=== PATIENT | male | born 1935 | race Caucasian/White ===

== ENCOUNTER → 2016-12-03 | Outpatient (CLI) | payer OTHER, BC ==
[~2016-12-03] VITALS: Ht 154.9 cm; Wt 74.8 kg
[~2016-12-03] MED LIST: ATORVASTATIN CA40 MG PO; CYMBALTA60 MG PO; DITROPAN XL10 M1 PO; FLOMAX0.4 MG PO; HYDROCODONE-AP1 EAC6 PO; LOPRESSOR25 PO; MS CONTIN15 MG PO; NABUMETONE 750750 M1 PO; NUCYNTA50 MG PO; PROTONIX40 M1 PO; TOPAMAX 25 MG T25 M1 PO; VITAMIN D3400 UNIT PO; VITAMINC500 PO
--- NOTE | ~2016-12-03 | HPC ---
[facility] [address] [address] PAIN MANAGEMENT CONSULTATION Name: JUANITASANJU Room #: REG Chely Roberto.#: [id number] Admission: 12/03/16 Attend Phys: Dawson Hess DO Discharge: Date of : 33 Report #: [id number] THIS REPORT FOR: //name// CC: Mahad Hess HISTORY OF PRESENT ILLNESS: The patient is an 81-year-old gentleman seen in consultation at request of Dr. Ramirez for assistance with management of pain, low back, left buttock and leg. He had had a spinal cord stimulator implanted about 5 or 6 years ago at [facility]. He states he uses it daily. He states he feels tingling sensation in his back and legs. He states it "takes my mind off my pain." He has been taking hydrocodone 5/325 two tablets in the morning for some time, Cymbalta 60 mg daily, Relafen 750 b.i.d. He notes he has subjective weakness in his back and legs. Notes no paresthesia, saddle anesthesia or bowel or bladder continence changes. Despite 10 mg of hydrocodone once a day, he still rates his pain at 7-9 on a 0-10 visual analog scale. He describes continuous, steady, burning, aching, tender pain exacerbated with standing and walking. REVIEW OF SYSTEMS: Complete review of systems was attached to chart, was gone over with the patient. He is . He does not smoke or drink alcohol to excess. History of dyslipidemia for which he takes Lipitor. Benign prostatic hypertrophy for which he takes Flomax and Ditropan. Metoprolol for hypertension. He does have a renal mass that is being followed, it has not been biopsied. By reports, his renal function is within normal limits. He takes Protonix for gastroesophageal reflux, Elavil for insomnia. He does have some short term memory noted in the notes from Dr. Ramirez. 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 He has been diagnosed with tremor and Parkinson's. He has failed multiple Parkinson's drugs, currently he is taking Topamax with some efficacy. He has had at least 4 back surgeries, last one being 10-12 years ago, plus the aforementioned spinal cord stimulator implanted 5 years ago. Apparently, that physician stopped seeing patients per the patient, he cannot remember the physician's name. 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 Pain impact score is quite high, averaging about 7.8 for all indices queried. PHYSICAL EXAMINATION: Reveals 5 feet 7 inches, 165-pound gentleman, BMI is 31.2 kilograms per meter squared. He is well groomed, appears alert and oriented, but does have some obvious memory deficits. Blood pressure is 143/74, pulse 61, respirations are 14. Cranial nerves 2-12 are generally intact. He does have [facility] [address] [place] [address] PAIN MANAGEMENT CONSULTATION Name: SANJU GRANT Room #: REG CLChely Mayberry#: [id number] Admission: 12/03/16 Attend Phys: Dawson Hess DO Discharge: Date of : 33 Report #: [id number] somewhat of a flat facies, perhaps secondary to his Parkinson's. Pupils equal, reactive to light and accommodation. Extraocular muscles are intact. Thyroid is enlarged, though I detect no specific nodules. Upper extremity strength is generally symmetric. Heart is regular and rhythmical without murmur. Lungs clear to auscultation. Rises from chair using armrests, has an ataxic gait. Lumbar flexion is limited to 70 degrees. Left dorsiflexion strength is diminished about 3/5, all other motor test about 4/5. Patellar reflexes absent on the right, 1-2/4 on the left. Straight leg raise is negative. Amairani test is negative. DIAGNOSTIC STUDIES: There are no recent diagnostic studies available for evaluation at this time. ASSESSMENT: Symptomatic lumbar radiculopathy status post decompressive laminectomy, component of lumbar spondylosis, component of sacroiliac joint dysfunction, Parkinson's, hypertension, dyslipidemia, benign prostatic hypertrophy and ostensibly benign renal mass being followed. RECOMMENDATIONS: Discussion with the patient today about therapeutic options. He states that with the hydrocodone he still is not as functional as he would like to be. After a long discussion, we have elected to start Nucynta 50 mg one in the morning and one 6 later roughly at noon. Hopefully, this will give him some analgesia, will be less sedating, we will have him continue Cymbalta and Relafen prescribed by his prior physician, Relafen is limited to 750 one tablet a day. We would like to see renal function at some point. We will see him back in 4 weeks to evaluate efficacy of medication changes. Thanks for allowing me to participate in the patient's care. I will keep you abreast of his progress. Addendum (12/06/16). Patients insurance company will not pay for Nucynta. While this is, as usual, increbibly frustrating that the insurance company is now essentially involved in the practice of medicine, I will endeavor to find an acceptable, yet inferior agent for this patient. Given that two [place] 5/325 taken together in am was not providing effective pain relief throughout the day, I will try one MS Contin 15 mg in the am. IF this does not work, or the insurance company decides this agent is not agreeable TO THEM, perhaps we can consider Percocet 5/325, one in am and one in the afternoon. I am hesitant to write for this as the patient has been taking both of his prior "b.i.d." daily medications together, and I am concerned that he will simply take both percocet [facility] [address] [place] [address] PAIN MANAGEMENT CONSULTATION Name: SANJU GRANT Room #: [facility] [id number] Admission: 12/03/16 Attend Phys: Dawson Hess DO Discharge: Date of : 33 Report #: [id number] together, giving him too much opioid at one time, and yet again, failing to provide analgesia throughout the day. <ELECTRONICALLY SIGNED> By: Dawson Hess DO 12/06/16 0902 [id number] 0616 Dawson Hess DO /nt
[2016-12-03 13:53] VITALS: BP 143/74
== END | disposition home or self-care (01) ==
LOC: PAIN 12:18
DX: M54.16 Radiculopathy, lumbar region (principal); M47.816 Spondylosis without myelopathy or radiculopathy, lumbar region; M53.3 Sacrococcygeal disorders, not elsewhere classified; G20 Parkinson's disease; I10 Essential (primary) hypertension; E78.5 Hyperlipidemia, unspecified; N40.0 Benign prostatic hyperplasia without lower urinary tract symptoms

== ENCOUNTER → 2016-12-28 | Outpatient (CLI) | payer OTHER, BC ==
[~2016-12-28] VITALS: Ht 170.2 cm; Wt 76.3 kg
[~2016-12-28] MED LIST changes: +PERCOCET PO
--- NOTE | ~2016-12-28 | HPC ---
[facility] [address] [place] [address] PAIN MANAGEMENT CONSULTATION Name: SANJU GRANT Room #: REG Chely Roberto.#: [id number] Admission: 12/28/16 Attend Phys: Dawson Hess DO Discharge: Date of : 33 Report #: [id number] THIS REPORT FOR: //name// CC: Oskar Hess HISTORY OF PRESENT ILLNESS: The patient is a pleasant 81-year-old gentleman initially seen in consultation on 12/03/2016. He has symptomatic lumbar radiculopathy status post decompressive laminectomy, lumbar spondylosis, SI joint mediated pain, and history of Parkinson's, requiring complex medication management. Last visit, he was taking hydrocodone 5/325 two tablets in the morning with dwindling efficacy. I wrote for Nucynta 50 mg 1 in the morning, 1 at noon, but unfortunately, his insurance company declined this. I subsequently wrote for MS Contin 15 mg 1 in the morning. Returns to pain clinic today noting that the MS Contin is helpful absolutely , but actually no better than 2 hydrocodone in the morning, and he is losing efficacy with that prior dosing. Now, his pain is primarily back in legs. Exacerbated with standing, walking and bending. He is reasonably comfortable when he is recumbent. Rates his subjective pain score as 3/10 at present, but it does interfere with function. No problems with daytime somnolence, mental acuity changes, constipation. We reviewed the fact that opiate medications are being used to provide analgesia adequate to support activities of daily living, not attempting to achieve a specific pain score on the 0-10 Visual Analog Scale. The current opiate medications are providing sufficient analgesia to allow the patient to participate in activities of daily living. The patient is not exhibiting any aberrant behavior suggestive of drug diversion. The patient is not having any adverse reactions to medications. The patient is not suffering from daytime somnolence or mental acuity changes. The patient is managing opiate-induced constipation with appropriate qdyg-gcu-qswpgyj agents and dietary considerations. The patient was counseled on concern for caution with operating a motor vehicle while using opiate medications. A physical exam was performed and the patient's functional status was evaluated. All patients with back pain were advised against the bed rest greater than 4 days and were advised to return to normal activities. Pain score assessment was noted and the treatment plan was reviewed with the patient. All current medications, both prescribed and OTC were reviewed and reconciled on the electronic medical record. Tobacco screening was accomplished and smoking cessation was advised when indicated. BMI was noted and diet/exercise modification was recommended for all patients following outside normal parameters. I reviewed with the patient today their responsibilities to safeguard prescription medications, reviewed their responsibility to utilize medications only as prescribed by the physician. They are to seek and receive pain medications only from 1 physician group ( [facility]). [place] [address] PAIN MANAGEMENT CONSULTATION Name: SANJU GRANT Room #: REG Chely Mayberry#: [id number] Admission: 12/28/16 Attend Phys: Dawson Hess DO Discharge: Date of : 33 Report #: [id number] 1 pharmacy and keep the clinic informed if they change pharmacies. Their responsibilities include making followup visits in a timely fashion and to avoid abrupt discontinuation of medication usage. Their responsibilities further include bringing their medications (bottles from the pharmacy with residual pills) to the visit for possible confirmation of pill counts and the patient understands it is their responsibility to submit to random drug screens to ensure both that the medications prescribed are present, and that no other controlled substances are present. All prescriptions provided today were generated electronically. PHYSICAL EXAMINATION: Unchanged from presentation. ASSESSMENT: Lumbar radiculopathy status post decompressive laminectomy, lumbar spondylosis, sacroiliac joint dysfunction, and Parkinson's by history requiring complex medication management. RECOMMENDATIONS: After discussion with the patient today, we have elected to trial 1 more opiate rotation, Percocet 5/325, one tablet in the morning and the second tablet with lunch. Follow up in 4 weeks to evaluate efficacy. DISPOSITION: Discharged in good and stable condition. By: [id number] Dawson Hess DO /fredo
[2016-12-28 12:37] VITALS: BP 140/70
== END | disposition home or self-care (01) ==
LOC: PAIN 05:48
DX: M54.16 Radiculopathy, lumbar region (principal); M47.896 Other spondylosis, lumbar region; M53.3 Sacrococcygeal disorders, not elsewhere classified; G20 Parkinson's disease; Z87.891 Personal history of nicotine dependence

== ENCOUNTER → 2017-01-25 | Outpatient (CLI) | payer OTHER, BC ==
[~2017-01-25] VITALS: Ht 170.2 cm; Wt 73.2 kg
--- NOTE | ~2017-01-25 | HPC ---
[facility] [address] [place] [address] PAIN MANAGEMENT CONSULTATION Name: SANJU GRANT Room #: REG RUI Pardeep.#: [id number] Admission: 01/25/17 Attend Phys: Dawson Hess DO Discharge: Date of : 33 Report #: [id number] THIS REPORT FOR: //name// CC: Oskar Hess The patient is a very pleasant 81-year-old gentleman being treated for symptomatic lumbar radiculopathy status post decompressive laminectomy, lumbar spondylosis, SI joint pain, history of Parkinsons requiring complex medication management. Initially seen in consultation for assistance with management of ongoing pain. He was taking hydrocodone 5/325 two tablets in the morning with per the patient, no efficacy. We tried rotating to Nucynta, but his insurance failed to pay for this. Tried rotating to MS Contin, but this caused untoward sedation and no improvement in pain relief. Last visit, we wrote for Percocet 5/325, one in the morning and one with lunch. Returns to pain clinic today noting it is actually may be a little more effective. Still has pain, rates it as 7/10, exacerbated with standing, walking, generally any activity. Notes pain in the mid back, left buttock and leg. He is using a spinal cord stimulator. PHYSICAL EXAMINATION: Shows an 81-year-old gentleman, BMI is 25.3 kilograms per meter squared. Vital signs stable. Alert and oriented to person, place and time, judged to be a reasonable historian. Rises from chair using armrest. Modestly antalgic gait, diffuse tenderness across the low back, left leg is slightly decreased in strength compared to the right. We reviewed the fact that opiate medications are being used to provide analgesia adequate to support activities of daily living, not attempting to achieve a specific pain score on the 0-10 Visual Analog Scale. The current opiate medications are providing sufficient analgesia to allow the patient to participate in activities of daily living. The patient is not exhibiting any aberrant behavior suggestive of drug diversion. The patient is not having any adverse reactions to medications. The patient is not suffering from daytime somnolence or mental acuity changes. The patient is managing opiate-induced constipation with appropriate tnpb-olc-dfggizn agents and dietary considerations. The patient was counseled on concern for caution with operating a motor vehicle while using opiate medications. A physical exam was performed and the patient's functional status was evaluated. All patients with back pain were advised against the bed rest greater than 4 days and were advised to return to normal activities. Pain score assessment was noted and the treatment plan was reviewed with the patient. All current medications, both prescribed and OTC were reviewed and reconciled on the electronic medical record. Tobacco screening was accomplished and smoking cessation was advised when indicated. BMI was noted and diet/[place] [address] PAIN MANAGEMENT CONSULTATION Name: SANJU GRANT [facility] Room #: REG CLChely Mayberry#: [id number] Admission: 01/25/17 Attend Phys: Dawson Hess DO Discharge: Date of : 33 Report #: [id number] modification was recommended for all patients following outside normal parameters. I reviewed with the patient today their responsibilities to safeguard prescription medications, reviewed their responsibility to utilize medications only as prescribed by the physician. They are to seek and receive pain medications only from 1 physician group ( [facility]). They are to use 1 pharmacy and keep the clinic informed if they change pharmacies. Their responsibilities include making followup visits in a timely fashion and to avoid abrupt discontinuation of medication usage. Their responsibilities further include bringing their medications (bottles from the pharmacy with residual pills) to the visit for possible confirmation of pill counts and the patient understands it is their responsibility to submit to random drug screens to ensure both that the medications prescribed are present, and that no other controlled substances are present. All prescriptions provided today were generated electronically. RECOMMENDATIONS: Long discussion with the patient today about therapeutic options. Again, he understands that we are simply trying to attenuate the worse of his pain and keep him functional. Ultimately, I have elected to continue Percocet 5/325 being increased from 1 to 1-1/2 tablets in the morning and in the afternoon. I told him he has latitude to go up and down on that dose. I did write for 90 tablets for 30 days and I gave him second prescription to release in 4 weeks for another 90 tablets. We will see him back in 2 months for reevaluation, asked him to bring back his residual medication and we can determine via a pill count what his usage has been. Again, we reviewed concerns for opiate-induced constipation, cognitive impairment and sedation with scheduled 2 narcotics. By: [id number] Dawson Hess DO /nt
[2017-01-25 13:09] VITALS: BP 130/72
== END | disposition home or self-care (01) ==
LOC: PAIN 06:51
DX: M47.896 Other spondylosis, lumbar region (principal); G89.29 Other chronic pain; M53.3 Sacrococcygeal disorders, not elsewhere classified; G20 Parkinson's disease; Z98.890 Other specified postprocedural states; Z87.891 Personal history of nicotine dependence; Z79.899 Other long term (current) drug therapy

== ENCOUNTER → 2017-03-29 | Outpatient (CLI) | payer OTHER, BC ==
[~2017-03-29] VITALS: Ht 157.5 cm; Wt 74.6 kg
--- NOTE | ~2017-03-29 | HPC ---
[facility] [address] [place] [address] PAIN MANAGEMENT CONSULTATION Name: SANJU GRANT Room #: REG RUI Pardeep.#: [id number] Admission: 03/29/17 Attend Phys: Dawson Hess DO Discharge: Date of : 33 Report #: [id number] THIS REPORT FOR: //name// CC: Oskar Hess DATE OF SERVICE: 03/29/2017 SUMMARY: Mr. Grant is a pleasant 82-year-old gentleman, being treated for symptomatic lumbar radiculopathy, status post decompressive laminectomy, lumbar spondylosis, SI joint dysfunction. Comorbidity includes Parkinson disease, requiring high risk complex medication management. Last seen in the Pain Clinic, 01/25/2017. The patient was continued on Percocet 5/325 one tablet up to 3 times a day. He has a spinal cord stimulator ([employer]) in place. He charges it nightly, notices that it does give some relief. Notes primary pain into the mid to low back, left buttock and leg. Describes aching, sharp pressure. Rates it a 4/5 in a VAS. The pain is exacerbated with activity, including standing and walking. PHYSICAL EXAMINATION: Shows 82-year-old gentleman, BMI is 30.1 kilograms per meter squared. Vital signs are stable as noted in the EMR. Alert and oriented to person, place and time, judged to be a reasonable historian. Modestly flat affect, compatible with longstanding products. Rises from chair using armrest. Gait is mildly antalgic, favoring the left leg. Lumbar flexion is slightly limited, diffuse tenderness across the low back. No discrete trigger points are noted. We reviewed the fact that opiate medications are being used to provide analgesia adequate to support activities of daily living, not attempting to achieve a specific pain score on the 0-10 Visual Analog Scale. The current opiate medications are providing sufficient analgesia to allow the patient to participate in activities of daily living. The patient is not exhibiting any aberrant behavior suggestive of drug diversion. The patient is not having any adverse reactions to medications. The patient is not suffering from daytime somnolence or mental acuity changes. The patient is managing opiate-induced constipation with appropriate nycy-drl-cnbqczk agents and dietary considerations. The patient was counseled on concern for caution with operating a motor vehicle while using opiate medications. A physical exam was performed and the patient's functional status was evaluated. All patients with back pain were advised against the bed rest greater than 4 days and were advised to return to normal activities. Pain score assessment was noted and the treatment plan was reviewed with the patient. All current medications, both prescribed and OTC were reviewed and reconciled on the electronic medical record. Tobacco screening was accomplished and smoking [address] [address] PAIN MANAGEMENT CONSULTATION Name: SANJU GRANT [facility] Room #: REG RUI Mayberry#: [id number] Admission: 03/29/17 Attend Phys: Dawson Hess DO Discharge: Date of : 33 Report #: [id number] cessation was advised when indicated. BMI was noted and diet/exercise modification was recommended for all patients following outside normal parameters. I reviewed with the patient today their responsibilities to safeguard prescription medications, reviewed their responsibility to utilize medications only as prescribed by the physician. They are to seek and receive pain medications only from 1 physician group ( [facility]). They are to use 1 pharmacy and keep the clinic informed if they change pharmacies. Their responsibilities include making followup visits in a timely fashion and to avoid abrupt discontinuation of medication usage. Their responsibilities further include bringing their medications (bottles from the pharmacy with residual pills) to the visit for possible confirmation of pill counts and the patient understands it is their responsibility to submit to random drug screens to ensure both that the medications prescribed are present, and that no other controlled substances are present. All prescriptions provided today were generated electronically. ASSESSMENT: Symptomatic lumbar radiculopathy, status post decompressive laminectomy, requiring complex medication. High risk medication management. Stable on low dose Percocet 5/325 one tablet up to 3 times a day. RECOMMENDATIONS: 1. Renew current medication for 15 months. 2. Follow up at that time, earlier if needed. <ELECTRONICALLY SIGNED> By: Dawson Hess DO 04/01/17 1253 [id number] 2215 Dawson Hess DO /nt
[2017-03-29 12:36] VITALS: BP 150/87
== END ==
LOC: PAIN 07:06
DX: M54.16 Radiculopathy, lumbar region (principal)

== ENCOUNTER → 2017-07-25 | Outpatient (CLI) | payer OTHER, BC ==
[~2017-07-25] VITALS: Ht 170.2 cm; Wt 72.2 kg
--- NOTE | ~2017-07-25 | HPC ---
[facility] [place] [address] PAIN MANAGEMENT CONSULTATION Name: SANJU GRANT Room #: REG RUI Jefe#: [id number] Admission: 07/25/17 Attend Phys: Dawson Hess DO Discharge: Date of : 33 Report #: [id number] THIS REPORT FOR: //name// CC: Oskar Hess The patient is a pleasant 82-year-old gentleman, typically treated for lumbar radiculopathy status post decompressive laminectomy, has a component of Parkinson's, requiring high risk complex medication management. He takes Percocet 5/325 one half to one tablet up to 3 tablets a day. Last seen in the pain clinic 05/24/2017, continued on low dose Percocet. The patient has a [employer] spinal cord stimulator, which helps some with radicular pain. Returns to pain clinic today. Notes medications help with pain, rates pain a 3-4 on VAS. He uses the stimulator daily. Notes the pain is exacerbated with activity including standing and walking. Pain is primarily in the mid to low back. PHYSICAL EXAMINATION: Shows an 82-year-old gentleman, BMI is 24.9 kg/m2. Blood pressure is modestly elevated at 157/78, pulse 62, and respirations are 16. Somewhat of a flat affect compatible with Parkinson's. He does have a little mild ataxia in his gait and loss of left dorsiflexion strength. Straight leg raise is negative. Patellar and Achilles reflexes are diminished, but symmetric. Diffuse axial back pain, no discrete trigger points are noted. We reviewed the fact that opiate medications are being used to provide analgesia adequate to support activities of daily living, not attempting to achieve a specific pain score on the 0-10 Visual Analog Scale. The current opiate medications are providing sufficient analgesia to allow the patient to participate in activities of daily living. The patient is not exhibiting any aberrant behavior suggestive of drug diversion. The patient is not having any adverse reactions to medications. The patient is not suffering from daytime somnolence or mental acuity changes. The patient is managing opiate-induced constipation with appropriate hbwb-wlc-tzcjeak agents and dietary considerations. The patient was counseled on concern for caution with operating a motor vehicle while using opiate medications. A physical exam was performed and the patient's functional status was evaluated. All patients with back pain were advised against the bed rest greater than 4 days and were advised to return to normal activities. Pain score assessment was noted and the treatment plan was reviewed with the patient. All current medications, both prescribed and OTC were reviewed and reconciled on the electronic medical record. Tobacco screening was accomplished and smoking cessation was advised when indicated. BMI was noted and diet/exercise modification was recommended for all patients following outside normal parameters. [address] [address] PAIN MANAGEMENT CONSULTATION Name: SANJU GRANT [facility] [place] Room #: REG CL Jefe#: [id number] Admission: 07/25/17 Attend Phys: Dawson Hess DO Discharge: Date of : 33 Report #: [id number] I reviewed with the patient today their responsibilities to safeguard prescription medications, reviewed their responsibility to utilize medications only as prescribed by the physician. They are to seek and receive pain medications only from 1 physician group ([facility]). They are to use 1 pharmacy and keep the clinic informed if they change pharmacies. Their responsibilities include making followup visits in a timely fashion and to avoid abrupt discontinuation of medication usage. Their responsibilities further include bringing their medications (bottles from the pharmacy with residual pills) to the visit for possible confirmation of pill counts and the patient understands it is their responsibility to submit to random drug screens to ensure both that the medications prescribed are present, and that no other controlled substances are present. All prescriptions provided today were generated electronically. ASSESSMENT: Symptomatic lumbar radiculopathy status post decompressive laminectomy, Parkinson's, requiring high risk complex medication management. RECOMMENDATIONS: Continue Percocet 5/325 half to one tablet up to 3 times a day, dispensed of 1 prescription today for 90 tablets and a 4-week release prescription for 90 tablets. This will typically last the patient 2-3 months. I cautioned the patient about balance and recommend exercising including balance exercises. Suggest cane if he feels unstable, though he denies falls. We did get a buccal swab today. No aberrant behavior suggestive for drug diversion, simply complying with our opiate consent to treat contract. By: [id number] Dawson Hess DO /nt
[2017-07-25 14:49] VITALS: BP 157/78
== END ==
LOC: PAIN 07:19
DX: G20 Parkinson's disease (principal); M54.16 Radiculopathy, lumbar region; Z98.890 Other specified postprocedural states; Z79.899 Other long term (current) drug therapy

== ENCOUNTER → 2017-09-19 | Outpatient (CLI) | payer OTHER, BC ==
[~2017-09-19] VITALS: Ht 170.2 cm; Wt 73.8 kg
[~2017-09-19] MED LIST changes: +ARICEPT 5 MG TAB5 MG PO; +ARICEPT10 MG PO
--- NOTE | ~2017-09-19 | HPC ---
[facility] [place] [address] [place] [address] PAIN MANAGEMENT CONSULTATION Name: SANJU GRANT Room #: REG RUI Jefe#: [id number] Admission: 09/19/17 Attend Phys: Dawson Hess DO Discharge: Date of : 33 Report #: [id number] THIS REPORT FOR: //name// CC: Oskar Hess The patient is an 82-year-old gentleman being treated for lumbar radiculopathy, status post decompressive laminectomy, has a spinal cord stimulator placed ([employer]). Comorbidity includes Parkinson's. He requires complex medication management for chronic pain management. He has been on opiate medications for many years. I took over his care in December 2016. He is taking a low dose hydrocodone 5/325 two tablets in the morning for many years. Over the past 9 months, we have continued the patient on modest opiate, titrated up to oxycodone (Percocet 5/325) up to t.i.d. He returns to pain clinic today stating he is able to participate in most activities of daily living, though he does note some issues with erectile dysfunction. Modest opiate-induced constipation, generally well treated with stool softener. He rates his pain at 4-5 on a VAS. Pain is primarily low back. Spinal cord stimulator does help to some degree. PHYSICAL EXAMINATION: Shows pleasant 82-year-old gentleman, somewhat flat affect, compatible with longstanding Parkinson's. BMI is 25.5 kilograms per meter squared. Blood pressure on EMR, pulse 65, respirations 16, oxygen saturation is 100%. Again, subjective pain score is 4-5 on a VAS. He has not fallen in the last 3 months. Rises from chair using armrest. Gait is tandem. Diffuse tenderness across the low back. He has modest ataxia. The patient does express concern over difficulty to achieve and maintain an erection. We talked about the fact he has been using opiates for a number of years. He may have a low testosterone secondary to this. He has been using vwry-ojj-hvfvlnv testosterone supplement. I suggest he discontinue this for 7 days (he just finished the first bottle that he had purchased). I did write for a serum testosterone level to be checked in 7 days. I asked that he follow up with a phone call after this. If the serum testosterone level is low, we will refer him back to Dr. Oskar Delgado ([phone]) for testosterone supplementation. Dr. Delgado is the patient's general scrap worker physician. The patient was seen for a little greater than 25 minutes, greater than 50% of this time was spent counseling the patient regarding therapeutic issues and specific concerns today including erectile dysfunction, modest opiate-induced constipation and some concern for balance. He was encouraged to continue with balance exercises. <ELECTRONICALLY SIGNED> By: Dawson Hess DO 09/20/17 0845 [id number] Dawson Hess DO /nt
[2017-09-19 14:48] VITALS: BP 133/55
[2017-09-19 14:51] VITALS: BP 133/55
== END ==
LOC: PAIN 07:18
DX: M54.16 Radiculopathy, lumbar region (principal); M96.1 Postlaminectomy syndrome, not elsewhere classified

== ENCOUNTER → 2017-11-18 | Outpatient (CLI) | payer OTHER, BC ==
[~2017-11-18] VITALS: Ht 170.2 cm; Wt 73.5 kg
[~2017-11-18] MED LIST changes: -ARICEPT10 MG PO
--- NOTE | ~2017-11-18 | HPC ---
[facility] [place] [address] [place] [address] PAIN MANAGEMENT CONSULTATION Name: SANJU GRANT Room #: REG RUI Pardeep.#: [id number] Admission: 11/18/17 Attend Phys: Dawson Hess DO Discharge: Date of : 33 Report #: [id number] THIS REPORT FOR: //name// CC: Oskar Hess The patient is a very pleasant 82-year-old gentleman, being treated for lumbar radiculopathy status post decompressive laminectomy. He does have a [employer] spinal cord stimulator in place. I took over his care in December. The patient has been taking hydrocodone 5/325 two in the morning for some time, Cymbalta, Relafen with dwindling efficacy. Ultimately, we rotated to Percocet 5/325. He returns to pain clinic today. He has been remarkably stable on his current medication, takes Percocet 5/325 typically 1-1-1/2 tablet in the morning and at lunch, limit 90 tablets for 30 days. No problems with daytime somnolence, mental acuity changes, or constipation. The patient states his pain is primarily low back with bilateral calf pain, exacerbated with 5-10 minutes of standing and walking. He does not have any myelopathic symptoms. PHYSICAL EXAMINATION: Shows a 5 feet 7 inches, 162-pound gentleman, BMI is 25.4 kg/m2. Blood pressure 146/71, pulse 58, respirations 16. Subjective pain score is 5-6 on a VAS. He has not fallen in the last 3 months. Gait is actually tandem and balance is good. His opiate consent to treat contract was last signed on 07/25/2017. We did a random drug screen on 07/26/2017, which is positive for prescribed medications. Physical exam otherwise shows a moderately flat affect, history of Parkinson's. He rises from chair using armrest. Gait is tandem. Lower extremity strength is generally preserved. We reviewed the fact that opiate medications are being used to provide analgesia adequate to support activities of daily living, not attempting to achieve a specific pain score on the 0-10 Visual Analog Scale. The current opiate medications are providing sufficient analgesia to allow the patient to participate in activities of daily living. The patient is not exhibiting any aberrant behavior suggestive of drug diversion. The patient is not having any adverse reactions to medications. The patient is not suffering from daytime somnolence or mental acuity changes. The patient is managing opiate-induced constipation with appropriate szfq-eyc-lmdizyj agents and dietary considerations. The patient was counseled on concern for caution with operating a motor vehicle while using opiate medications. A physical exam was performed and the patient's functional status was evaluated. All patients with back pain were advised against the bed rest greater than 4 days and were advised to return to normal activities. Pain score assessment was noted and the treatment plan was reviewed with the patient. All current [address] [address] PAIN MANAGEMENT CONSULTATION Name: SANJU GRANT [facility] Room #: REG RUI Mayberry#: [id number] Admission: 11/18/17 Attend Phys: Dawson Hess DO Discharge: Date of : 33 Report #: [id number] medications, both prescribed and OTC were reviewed and reconciled on the electronic medical record. Tobacco screening was accomplished and smoking cessation was advised when indicated. BMI was noted and diet/exercise modification was recommended for all patients following outside normal parameters. I reviewed with the patient today their responsibilities to safeguard prescription medications, reviewed their responsibility to utilize medications only as prescribed by the physician. They are to seek and receive pain medications only from 1 physician group ( [facility]). They are to use 1 pharmacy and keep the clinic informed if they change pharmacies. Their responsibilities include making followup visits in a timely fashion and to avoid abrupt discontinuation of medication usage. Their responsibilities further include bringing their medications (bottles from the pharmacy with residual pills) to the visit for possible confirmation of pill counts and the patient understands it is their responsibility to submit to random drug screens to ensure both that the medications prescribed are present, and that no other controlled substances are present. All prescriptions provided today were generated electronically. ASSESSMENT: Symptomatic lumbar radiculopathy status post decompressive laminectomy, chronic pain syndrome requiring complex medication management in a gentleman relatively stable on baseline medication. RECOMMENDATION: Continue Percocet 5/325, limit 90 tablets for 30 days, scripts for 2 months given. Follow up at that time, earlier if needed. <ELECTRONICALLY SIGNED> By: Dawson Hess DO 11/20/17 0819 [id number] Dawson Hess DO /nt
[2017-11-18 10:57] VITALS: BP 146/71
== END ==
LOC: PAIN 07:02
DX: M54.16 Radiculopathy, lumbar region (principal); M96.1 Postlaminectomy syndrome, not elsewhere classified; Z79.899 Other long term (current) drug therapy

== ENCOUNTER → 2018-01-20 | Outpatient (CLI) | payer OTHER, BC ==
[~2018-01-20] VITALS: Ht 170.2 cm; Wt 71.2 kg
[~2018-01-20] MED LIST changes: +ARICEPT10 MG PO
--- NOTE | ~2018-01-20 | HPC ---
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 He has a [employer] spinal cord stimulator in place. I took over his care in December. He has been stable on low dose opiate analgesics, we rotated from hydrocodone to Percocet 5/325 b.i.d. in December 2016. Typically, he takes 1 tablet 2-3 times a day, limit #90 tablets for 30 days. Returns to pain clinic today noting subjective pain score is 6-7 on a VAS. Pain is primarily in the back, buttock and legs. PHYSICAL EXAMINATION: Shows a pleasant 82-year-old gentleman who certainly has a little more cognitive defect. He has been taking donepezil for some time. Vital signs are stable. Rises from chair using armrest. Has had multiple back surgeries, well-healed midline surgical scar compatible with same, spinal cord stimulator in the left gluteal area and significant thoracic kyphosis. Gait is tandem, modestly ataxic. Lower extremity strength is diminished, but symmetric. Straight leg raise is negative. We reviewed the fact that opiate medications are being used to provide analgesia adequate to support activities of daily living, not attempting to achieve a specific pain score on the 0-10 Visual Analog Scale. The current opiate medications are providing sufficient analgesia to allow the patient to participate in activities of daily living. The patient is not exhibiting any aberrant behavior suggestive of drug diversion. The patient is not having any adverse reactions to medications. The patient is not suffering from daytime somnolence or mental acuity changes. The patient is managing opiate-induced constipation with appropriate vqir-qtk-cxgofog agents and dietary considerations. The patient was counseled on concern for caution with operating a motor vehicle while using opiate medications. A physical exam was performed and the patient's functional status was evaluated. All patients with back pain were advised against the bed rest greater than 4 days and were advised to return to normal activities. Pain score assessment was noted and the treatment plan was reviewed with the patient. All current medications, both prescribed and OTC were reviewed and reconciled on the electronic medical record. Tobacco screening was accomplished and smoking cessation was advised when indicated. BMI was noted and diet/exercise modification was recommended for all patients following outside normal parameters. I reviewed with the patient today their responsibilities to [address] [address] PAIN MANAGEMENT CONSULTATION Name: SANJU GRANT [facility] Room #: REG RUI Mayberry#: [id number] Admission: 01/20/18 Attend Phys: Dawson Hess DO Discharge: Date of : 33 Report #: [id number] prescription medications, reviewed their responsibility to utilize medications only as prescribed by the physician. They are to seek and receive pain medications only from 1 physician group ( [facility]). They are to use 1 pharmacy and keep the clinic informed if they change pharmacies. Their responsibilities include making followup visits in a timely fashion and to avoid abrupt discontinuation of medication usage. Their responsibilities further include bringing their medications (bottles from the pharmacy with residual pills) to the visit for possible confirmation of pill counts and the patient understands it is their responsibility to submit to random drug screens to ensure both that the medications prescribed are present, and that no other controlled substances are present. All prescriptions provided today were generated electronically. ASSESSMENT: Chronic pain syndrome requiring complex medication management in a gentleman status post multiple back surgeries, has a spinal cord stimulator that he uses intermittently requires complex medication management, stable on baseline medication including Percocet 5/325 up to 3 a day putting him at about 22.5 mEq of morphine daily. RECOMMENDATION: After discussion, the patient would like to continue current medication unchanged. No problems with daytime somnolence, mental acuity changes, or constipation. By: [id number] Dawson Hess DO /nt
[2018-01-20 13:26] VITALS: BP 153/72
== END ==
LOC: PAIN 06:21
DX: M54.5 Low back pain (principal); G89.4 Chronic pain syndrome; Z79.899 Other long term (current) drug therapy

== ENCOUNTER → 2018-03-26 | Outpatient (CLI) | payer OTHER, BC ==
[~2018-03-26] VITALS: Ht 170.2 cm; Wt 72.6 kg
--- NOTE | ~2018-03-26 | HPC ---
[facility] [place] [address] PAIN MANAGEMENT CONSULTATION Name: SANJU GRANT Room #: REG RUI MorejonDulce MariaTriston.#: [id number] Admission: 03/26/18 Attend Phys: Fidencio Hess DO Discharge: Date of : 33 Report #: [id number] THIS REPORT FOR: //name// CC: Fidencio Delgado MD DATE OF SERVICE: 03/26/2018 REFERRING PHYSICIAN: Oskar Delgado M.D. CHIEF COMPLAINT: Low back pain, lower extremity pain with paresthesias. HISTORY OF PRESENT ILLNESS: As you know, the patient is a very pleasant 83-year-old male who has been [facility] by [facility] for chronic low back pain, lower extremity pain with paresthesias. The patient has undergone placement of a spinal cord stimulator. The spinal cord stimulator is a [employer] product. The patient has yet to have this device reprogrammed and this has been in place for nearly 5 years. He returns today in followup visit requesting refill of medication. States pain level of 6/10, states pain is constant in nature, exacerbated with activity and standing and improves with medications, spinal cord stimulator and lying down. He indicates that his pain is initially there in the morning, continues throughout the day but does improve slightly at night. He returns today requesting medication management but also discuss other treatment options. ALLERGIES: No known drug allergies. CURRENT MEDICATIONS: Nabumetone 500 mg twice a day, duloxetine 60 mg once a day, tamsulosin 0.4 mg once a day, atorvastatin 40 mg per day, metoprolol 25 mg per day, pantoprazole 40 mg per day, topiramate 25 mg once a day, ascorbic acid 500 mg once a day, Aricept 10 mg once a day and Percocet 5/325 one tab every 8 hours p.r.n. for pain. SOCIAL HISTORY: The patient denies tobacco, alcohol or IV or illicit drug use. He is working, not receiving workmen's compensation, unaccompanied today. IMAGING DATA: No new imaging available. PQRS: The patient has osteoarthritis of the low back, bilateral hands, no rheumatoid arthritis. He places pain intensity 6/10. He is not a fall risk, has not had a fall in the last 3 months. He is not on blood thinners. He is treated for hypertension. He has been on opioids for greater than 6 weeks and is under contract to receive opioids. He is a low risk for opioid addiction. His pain impact score 48/70. Severe interference of daily activities secondary to pain. [address] [address] PAIN MANAGEMENT CONSULTATION Name: SANJU GRANT [facility] [id number] Admission: 03/26/18 Attend Phys: Fidencio Hess DO Discharge: Date of : 33 Report #: [id number] PHYSICAL EXAMINATION: VITAL SIGNS: Blood pressure 137/72, pulse 53 and respiratory rate 16 and unlabored. The patient is 100% on room air. Height 5 feet 7 inches tall, weight 160 pounds and BMI calculated 25.1. GENERAL: Well-developed, well-nourished, well-hydrated kyphotic and scoliotic 83-year-old male. He appears stated age, placing current pain score at approximately 6/10. HEENT: Normocephalic and atraumatic. Pupils equal, round and reactive to light. EXTREMITIES: Show no clubbing, no cyanosis and no edema. MUSCULOSKELETAL: Lower extremity strength equal and symmetrical 5/5. He appears intact to light touch from L1 through S2 dermatomes. He has difficulty standing from a seated position without the use of the armrests. He is able to ambulate, but this is antalgic. ASSESSMENT: 1. Lumbar radiculopathy. 2. Post-laminectomy syndrome. 3. Lumbosacral spondylosis with radicular symptoms. 4. Lumbar degeneration. 5. Chronic intractable pain. PLAN: 1. The patient has returned today in followup visit where we have discussed at length that the spinal cord stimulator he has in place apparently he has a [employer] system, this was implanted approximately 5 years ago, the patient has yet to have the device "tuned." The patient has not had the device reprogrammed in 5 years. The last reprogramming apparently was just after implantation. I believe strongly that if this device can provide some improvement in symptoms, we should have it adjusted immediately. We have advised the patient we will contact the [employer] help desk representative that help desk representative will contact the patient directly and they can set up an appointment time to be seen and make adjustments in the spinal cord stimulator in hopes of improving pain. I do feel that at one point in time, the patient was receiving good benefit with this device, reprogramming may provide the patient with improved benefit and reduce the patient's overall pain. I do wish to optimize this device as much as possible. 2. I have provided the patient with a prescription of Percocet 5/325 one tab p.o. q. 8 hours p.r.n. for pain, I have given the patient #120, releases of today, 4 weeks from today, 8 weeks from today, 3 months' worth of medication. The patient takes no more than 20 mg of oxycodone a day making an equivalent 30 mg morphine equivalents, well below the CDC's recommended no more than 90 morphine equivalents. We will continue the patient on this medication. 3. We reviewed the fact that opiate medications are being used to provide analgesia adequate to support activities of daily living, not attempting to [facility] [address] [place] [address] PAIN MANAGEMENT CONSULTATION Name: SANJU GRANT [facility] Room #: REG [facility]..#: [id number] Admission: 03/26/18 Attend Phys: Fidencio Hess DO Discharge: Date of : 33 Report #: [id number] achieve a specific pain score on the 0-10 Visual Analog Scale. The current opiate medications are providing sufficient analgesia to allow the patient to participate in activities of daily living. The patient is not exhibiting any aberrant behavior suggestive of drug diversion. The patient is not having any adverse reactions to medications. The patient is not suffering from daytime somnolence or mental acuity changes. The patient is managing opiate-induced constipation with appropriate cese-ply-iqnkosz agents and dietary considerations. The patient was counseled on concern for caution with operating a motor vehicle while using opiate medications. A physical exam was performed and the patient's functional status was evaluated. All patients with back pain were advised against the bed rest greater than 4 days and were advised to return to normal activities. Pain score assessment was noted and the treatment plan was reviewed with the patient. All current medications, both prescribed and OTC were reviewed and reconciled on the electronic medical record. Tobacco screening was accomplished and smoking cessation was advised when indicated. BMI was noted and diet/exercise modification was recommended for all patients following outside normal parameters. I reviewed with the patient today their responsibilities to safeguard prescription medications, reviewed their responsibility to utilize medications only as prescribed by the physician. They are to seek and receive pain medications only from 1 physician group ( [facility]). They are to use 1 pharmacy and keep the clinic informed if they change pharmacies. Their responsibilities include making followup visits in a timely fashion and to avoid abrupt discontinuation of medication usage. Their responsibilities further include bringing their medications (bottles from the pharmacy with residual pills) to the visit for possible confirmation of pill counts and the patient understands it is their responsibility to submit to random drug screens to ensure both that the medications prescribed are present, and that no other controlled substances are present. All prescriptions provided today were generated electronically. 4. We will see the patient back in followup visit in 3 months for medication management, earlier if he wishes to make reprogramming adjustments in his spinal cord stimulator. <ELECTRONICALLY SIGNED> By: Fidencio Hess DO 03/27/18 0818 [id number] Fidencio Hess DO /nt
[2018-03-26 11:21] VITALS: BP 137/72
== END ==
LOC: PAIN 07:33
DX: M47.27 Other spondylosis with radiculopathy, lumbosacral region (principal); M51.16 Intervertebral disc disorders with radiculopathy, lumbar region; G89.4 Chronic pain syndrome; Z79.899 Other long term (current) drug therapy

== ENCOUNTER → 2018-07-22 | Outpatient (CLI) | payer OTHER, BC ==
[~2018-07-22] VITALS: Ht 170.2 cm; Wt 5.9 kg
[~2018-07-22] MED LIST changes: +EX-LAX15 MG PO; +NORTRIPTYLINE H10 M1 PO; +PERCOCET 7.5-31 EACH PO
--- NOTE | ~2018-07-22 | HPC ---
[facility] [address] [place] [address] PAIN MANAGEMENT CONSULTATION Name: SANJU GRANT Room #: REG [facility] Maria.#: [id number] Admission: 07/22/18 Attend Phys: Maria Fernanda Santos Discharge: Date of : 33 Report #: [id number] THIS REPORT FOR: //name// CC: Maria Fernanda Delgado DATE OF SERVICE: 07/22/2018 CHIEF COMPLAINT: Low back pain, lower extremity pain with paraesthesias. HISTORY OF PRESENT ILLNESS: This is a very pleasant 83-year-old followed by the pain clinic for chronic low back pain and occasional radiculopathy involving his legs and his buttock. The patient tells me he has a spinal cord stimulator that he is not using has not used for several years. He tells me his pain score is 7-8, which is an increase of what it has been. He feels like he is not as well controlled with his pain medicine as he has in the past. He tells me he has constant pain, especially with activity and standing. His medications help some, but just not as good of efficacy as it used to have. Lying down also helps and sitting. The patient wonders about increasing his medicine, changing medicines, stopping them altogether, lots of questions regarding his medications today. ALLERGIES: No known drug allergies. CURRENT MEDICATIONS: Nortriptyline 10 mg at bedtime, Percocet 5/325 one tablet 4 times a day, Aricept 10 mg daily, vitamin C 500 mg daily, Topamax 25 mg daily, Protonix 40 mg daily, Lopressor 25 mg twice a day, Lipitor 40 mg daily, Flomax 0.4 mg daily, Cymbalta 60 mg daily and nabumetone 750 mg twice a day. PQRS: The patient has osteoarthritis in his low back, hands and denies rheumatoid arthritis. His height is 5 feet 7 inches, weight is 130, BMI is 25. His blood pressure is 172/74, pulse is 66, oxygen is 100%, respirations 18. Pain score is 7/8. The patient denies dizziness, does not need help walking or standing. has not fallen in the last 3 months. The patient is not on a blood thinner and he does take hypertension medicines. An opioid therapy is greater than 6 weeks, therefore, an opioid signed contract is in the chart and a drug screen is on the chart. Risk assessment is low. Functional assessment is 48/70. Recreational drug use - he denies. He is a former smoker and does not drink any alcohol. Did check the prescription monitoring system and he is filling appropriately from all of his medications from Dr. Fidencio Hess. The patient tells me he does safeguard his medications. PHYSICAL EXAMINATION: GENERAL: This is a well-developed, well-nourished, well-hydrated kyphotic and scoliotic 83-year-old gentleman who appears his stated age, placing his current pain score at 7/10. [address] [address] PAIN MANAGEMENT CONSULTATION Name: SANJU GRANT [facility] Room #: REG RUI Mayberry#: [id number] Admission: 07/22/18 Attend Phys: Maria Fernanda Santos Discharge: Date of : 33 Report #: [id number] HEENT: Normocephalic, atraumatic. Pupils equal, round and reactive to light. EXTREMITIES: No clubbing, no cyanosis, no edema. MUSCULOSKELETAL: Lower extremity strength equal and symmetrical at 5/5. He does complain of pain across his waist, belt line area in his lower back. He has difficulty rising from seated to standing position. He is able to ambulate without difficulty, but has an antalgic gait. He does not use any aids for ambulation. IMPRESSION: 1. Lumbar radiculopathy. 2. Post-laminectomy syndrome. 3. Lumbosacral spondylosis with radicular symptoms. 4. Lumbar degeneration. 5. Chronic intractable pain. 6. Spinal cord implant, not currently working. We reviewed the fact that opiate medications are being used to provide analgesia adequate to support activities of daily living, not attempting to achieve a specific pain score on the 0-10 Visual Analog Scale. The current opiate medications are providing sufficient analgesia to allow the patient to participate in activities of daily living. The patient is not exhibiting any aberrant behavior suggestive of drug diversion. The patient is not having any adverse reactions to medications. The patient is not suffering from daytime somnolence or mental acuity changes. The patient is managing opiate-induced constipation with appropriate irou-cyl-bahjuvt agents and dietary considerations. The patient was counseled on concern for caution with operating a motor vehicle while using opiate medications. A physical exam was performed and the patient's functional status was evaluated. All patients with back pain were advised against the bed rest greater than 4 days and were advised to return to normal activities. Pain score assessment was noted and the treatment plan was reviewed with the patient. All current medications, both prescribed and OTC were reviewed and reconciled on the electronic medical record. Tobacco screening was accomplished and smoking cessation was advised when indicated. BMI was noted and diet/exercise modification was recommended for all patients following outside normal parameters. I reviewed with the patient today their responsibilities to safeguard prescription medications, reviewed their responsibility to utilize medications only as prescribed by the physician. They are to seek and receive pain medications only from 1 physician group ( [facility]). They are to use 1 pharmacy and keep the clinic informed if they change pharmacies. Their responsibilities include making followup visits in a timely fashion and to avoid abrupt discontinuation of medication usage. Their responsibilities further include bringing their medications (bottles from the pharmacy with residual [facility] [address] [place] [address] PAIN MANAGEMENT CONSULTATION Name: SANJU GRANT GENE Room #: REG [facility] M.Triston.#: [id number] Admission: 07/22/18 Attend Phys: Maria Fernanda Santos Discharge: Date of : 33 Report #: [id number] pills) to the visit for possible confirmation of pill counts and the patient understands it is their responsibility to submit to random drug screens to ensure both that the medications prescribed are present, and that no other controlled substances are present. All prescriptions provided today were generated electronically. PLAN: 1. The patient returns to the pain clinic today to discuss treatment options. The patient thinks that his current medications are not as helpful as they used to be wondering if maybe he should stop them altogether. I asked the patient if he had taken less medication on some days to see if his pain has increased, the patient tells me that he had taken sometimes 2 pills a day, thought his pain was about the same, very frustrated that he is continuing to get worse. I questioned the patient as other narcotics that he has used in the past. The patient tells me that hydrocodone was ineffective in controlling his pain. He was on a short trial of MS Contin, but it did not give him good efficacy in controlling his pain. The patient had been stable on Percocet 5/325 for quite some time, though not as helpful currently. Discussed possible increase to the slight 7.5/325 four times a day. I explained to the patient, he could experience some constipation with this medicine. He tells me he uses cbwz-qxm-ijeimtg medicines that prevent constipation. He thinks that a trial of this medication might be helpful to see if we can decrease his pain. 2. I discussed also other treatment options with the patient regarding a possible injection. The patient tells me he has had these in the past, though our records indicate he has not had one since at least 2016. The patient is agreeable to try an epidural because he is tired of having constant pain. Appointment will be made with Dr. Fidencio Hess for a lumbar epidural injection in August. 3. Discussed with patient use of anti-inflammatories which he tells me he does take on a regular basis. We also talked about his spinal cord stimulator. The patient thinks that his battery is probably since he has not used it and it was not effective in the last few years, even though he had tried to have it reprogrammed. The patient is agreeable with the above plan of care. We will increase his medicine for 1 month and make an appointment for an injection. Care given today in collaboration with Dr. Fidencio Hess. <ELECTRONICALLY SIGNED> By: Maria Fernanda Santos 07/23/18 0729 [id number] Maria Fernanda Santos /nt
[2018-07-22 13:47] VITALS: BP 172/74
== END ==
LOC: PAIN 10:08
DX: M47.897 Other spondylosis, lumbosacral region (principal); G89.4 Chronic pain syndrome; M96.1 Postlaminectomy syndrome, not elsewhere classified; Z96.9 Presence of functional implant, unspecified

== ENCOUNTER → 2018-08-19 | Outpatient (CLI) | payer OTHER, BC ==
[~2018-08-19] VITALS: Ht 170.2 cm; Wt 71.1 kg
--- NOTE | ~2018-08-19 | HPC ---
[facility] [employer] [place] [address] PAIN MANAGEMENT CONSULTATION Name: SANJU GRANT [facility] Room #: REG Chely MDulce Maria.#: [id number] Admission: 08/19/18 Attend Phys: Fidencio Hess DO Discharge: Date of : 33 Report #: [id number] THIS REPORT FOR: //name// CC: Fidencio Delgaod MD DATE OF SERVICE: 08/19/2018 CHIEF COMPLAINT: Low back pain, lower extremity pain and paresthesias. HISTORY OF PRESENT ILLNESS: As you know, the patient is an 83-year-old male who has been [facility] by [facility] for chronic low back pain, occasional radiculopathy involving his buttock and bilateral legs. The patient has a spinal cord stimulator, but has not used this in several years. He returns today in followup visit for medication management. He feels medications in the form of Percocet 7.5/325 were too powerful, though he requested the increase at last visit. He wishes to reduce back to his 5/325 tablets to take no more than 4 a day. He states at the 5/325, his pain was well controlled, no side effects. Unfortunately, side effects at the 7.5/325 dosing. He returns to make adjustments to lower his opioid dose. ALLERGIES: No known drug allergies. CURRENT MEDICATIONS: Nabumetone 750 mg twice a day, duloxetine 60 mg once a day, tamsulosin 0.4 mg once a day, atorvastatin 40 mg per day, metoprolol 25 mg once a day, pantoprazole 40 mg once a day, topiramate 25 mg once a day, ascorbic acid 500 mg once a day, donepezil 10 mg once a day, nortriptyline 10 mg p.o. at bedtime, oxycodone 7.5/325 one tab every 6 hours p.r.n. for pain. SOCIAL HISTORY: The patient denies tobacco, alcohol, IV or illicit drug use. He is retired, retired years ago, unaccompanied today. IMAGING: No new imaging available. PQRS: The patient has known osteoarthritic changes of bilateral hands, low back and denies any history of rheumatoid arthritis. He is placing pain intensity of 7-8/10. He is a fall risk. He has had a fall in the last 3 months, but is utilizing ambulatory device. We reeducated the patient on the use of that device today. The patient is not on blood thinners, but is treated for hypertension. He has been on chronic opioids for an extended period of time. He has a low risk for opioid dependency. He is placing pain impact score at 48/70, moderate to severe interference of daily activities secondary to pain. PHYSICAL EXAMINATION: VITAL SIGNS: Blood pressure 137/72, pulse 56, respiratory rate 14 and [facility] [address] [place] [address] PAIN MANAGEMENT CONSULTATION Name: SANJU GRANT [facility] [id number] Admission: 08/19/18 Attend Phys: Fidencio Hess DO Discharge: Date of : 33 Report #: [id number] unlabored. The patient is 97% on room air. Height 5 feet 7 inches tall, weight 156.8 pounds, BMI calculated 24.6. 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 He is placing pain today 7-03/14. HEENT: Normocephalic, atraumatic. Pupils equal, round, reactive to light. EXTREMITIES: Show no clubbing, no cyanosis, no edema. MUSCULOSKELETAL: There is palpatory tenderness noted over the paraspinal musculature of the thoracic and lumbar spine, no spinous process tenderness. Lower extremity strength is symmetrical 5/5. Deep tendon reflexes appear symmetrical, but diminished bilaterally. Gait is antalgic. The patient does have difficulty rising from seated position. ASSESSMENT: 1. Lumbar radiculopathy. 2. Post-laminectomy syndrome. 3. Lumbosacral spondylosis with radiculopathy. 4. Lumbar degeneration. 5. Chronic intractable pain. 6. Complicated medication therapy. PLAN: 1. The patient returns today in followup visit where we have discussed the efficacy of the 7.5/325 Percocets provided at last visit. The patient reports the medication to be "too strong." He has requested that we reduce his opioid medications back to the 5/325 for which he was getting good benefit and less side effects. We have adjusted his medications appropriately today to address his side effects noted with the higher dosing. 2. The patient was provided a prescription of Percocet 5/325 one tab p.o. q.6 hours p.r.n. for pain. I have given the patient #120 tablets, releasing today, 4 weeks from today, 8 weeks from today, 3 months' worth of medication. The patient was advised total opioid use is equal to 20 mg of oxycodone a day, which equates to 30 mg morphine equivalents a day, well below the CDC's recommended 90 morphine equivalents maximum. 3. We reviewed the fact that opiate medications are being used to provide analgesia adequate to support activities of daily living, not attempting to achieve a specific pain score on the 0-10 Visual Analog Scale. The current opiate medications are providing sufficient analgesia to allow the patient to participate in activities of daily living. The patient is not exhibiting any aberrant behavior suggestive of drug diversion. The patient is not having any adverse reactions to medications. The patient is not suffering from daytime somnolence or mental acuity changes. The patient is managing opiate-induced constipation with appropriate dpjf-fgv-suxmepd agents and dietary considerations. The patient was counseled on concern for caution with operating a motor vehicle while using opiate medications. A physical exam was performed and the patient's functional status was evaluated. [address] [address] PAIN MANAGEMENT CONSULTATION Name: SANJU GRANT [facility] Room #: REG [facility]#: [id number] Admission: 08/19/18 Attend Phys: Fidencio Hess DO Discharge: Date of : 33 Report #: [id number] All patients with back pain were advised against the bed rest greater than 4 days and were advised to return to normal activities. Pain score assessment was noted and the treatment plan was reviewed with the patient. All current medications, both prescribed and OTC were reviewed and reconciled on the electronic medical record. Tobacco screening was accomplished and smoking cessation was advised when indicated. BMI was noted and diet/exercise modification was recommended for all patients following outside normal parameters. I reviewed with the patient today their responsibilities to safeguard prescription medications, reviewed their responsibility to utilize medications only as prescribed by the physician. They are to seek and receive pain medications only from 1 physician group ( [facility]). They are to use 1 pharmacy and keep the clinic informed if they change pharmacies. Their responsibilities include making followup visits in a timely fashion and to avoid abrupt discontinuation of medication usage. Their responsibilities further include bringing their medications (bottles from the pharmacy with residual pills) to the visit for possible confirmation of pill counts and the patient understands it is their responsibility to submit to random drug screens to ensure both that the medications prescribed are present, and that no other controlled substances are present. All prescriptions provided today were generated electronically. 4. We will see the patient back in followup visit in 3 months. By: [id number] Fidencio Hess DO /fredo
[2018-08-19 12:56] VITALS: BP 177/72
--- NOTE | 2018-08-19 13:01 | NUR ---
Pain Clinic Assessment: 1. History of Osteoarthritis: BACK HANDS History of Rheumatoid Arthritis: Not Applicable 2. Height: 5 ft. 7 in. 170.2 cm. Weight: 156.8 lb. oz. 71.124 kg. Patient's BMI: 24.6 3. Vital Signs: BP: 177/72 Pulse: 56 Resp: 14 Temp: 02 Sat: 97 ECG Mon: 4. Pain Intensity: 7-8 5. Fall Risk: Dizziness: Y Needs help standing or walking: Y Fallen in the last 3 months: Y Fall risk comments: 6. Patient on Blood Thinner: None 7. History of Hypertension: Y 8. Opioid Therapy greater than 6 weeks: Y Opiate Contract Signed: 07/25/17 9. Risk Assessment Tool Provided: 0-LOW 10. Functional Assessment Tool: 11. Recreational Drug Use: Never Drug Type: Tobacco Use: Former Smoker Tobacco Type: Amount or Packs/day: How Many Years: Alcohol Use: No Frequency: Quant:
== END ==
LOC: PAIN 06:54
DX: M19.042 Primary osteoarthritis, left hand (principal); M19.041 Primary osteoarthritis, right hand; M54.5 Low back pain; G89.29 Other chronic pain; Z79.891 Long term (current) use of opiate analgesic; Z79.899 Other long term (current) drug therapy

== ENCOUNTER → 2019-01-13 | Outpatient (CLI) | payer OTHER, BC ==
[~2019-01-13] VITALS: Ht 170.2 cm; Wt 77.3 kg
[2019-01-13 12:37] VITALS: BP 184/74
--- NOTE | 2019-01-13 12:43 | NUR ---
Pain Clinic Assessment: 1. History of Osteoarthritis: BACK HANDS History of Rheumatoid Arthritis: Not Applicable 2. Height: 5 ft. 7 in. 170.2 cm. Weight: 170.4 lb. oz. 77.293 kg. Patient's BMI: 26.7 3. Vital Signs: BP: 184/74 Pulse: 47 Resp: 14 Temp: 02 Sat: 98 ECG Mon: 4. Pain Intensity: 6-7 5. Fall Risk: Dizziness: Y Needs help standing or walking: Y Fallen in the last 3 months: N Fall risk comments: 6. Patient on Blood Thinner: None 7. History of Hypertension: Y 8. Opioid Therapy greater than 6 weeks: Y Opiate Contract Signed: 07/25/17 9. Risk Assessment Tool Provided: 0-LOW 10. Functional Assessment Tool: 11. Recreational Drug Use: Never Drug Type: Tobacco Use: Former Smoker Tobacco Type: Amount or Packs/day: How Many Years: Alcohol Use: No Frequency: Quant:
--- NOTE | 2019-01-21 12:17 | HPC ---
[facility] [address] [place] [address] PAIN MANAGEMENT CONSULTATION Name: SANJU GRANT [facility] Room #: REG CLChely Zana.#: [id number] Admission: 01/13/19 ������������������ Attend Phys: Fidencio Hess DO Discharge: ������������������ Date of : 33 Report #: [id number] THIS REPORT FOR: //name// CC: Fidencio Deglado MD DATE OF SERVICE: 01/13/2019 CHIEF COMPLAINT: Low back pain, lower extremity pain and paresthesias. HISTORY OF PRESENT ILLNESS: As you know, the patient is an 83-year-old male followed by [facility] for chronic low back pain, occasional radicular symptoms involving his buttock and bilateral legs. He returns today in followup visit requesting to undergo epidural injection under fluoroscopic guidance. As you are aware, the patient has undergone extensive lumbar surgery and despite these interventions continues to experience pain of a level of 6-7/10. He states his pain is sharp, aching tenderness, sore, shooting; exacerbated with activity, standing and walking; improves with medications, heat and lying down. He returns to undergo lumbar epidural injection under fluoroscopic guidance. ALLERGIES: No known drug allergies. CURRENT MEDICATIONS: See extensive list in chart. SOCIAL HISTORY: The patient denies tobacco, alcohol, IV or illicit drug use. He is retired, retired years ago, unaccompanied today. IMAGING: No new imaging available. PQRS: The patient has no known osteoarthritic change in the lumbar spine, bilateral hips and knees. No rheumatoid arthritis. He is a fall risk, but has not had a fall in last 3 months. He is not on blood thinners, but is treated for hypertension. He is on chronic opioids and has reportedly had a low opioid addiction potential. Pain impact score 40/70 indicating severe interference of daily activities secondary to pain. PHYSICAL EXAMINATION: VITAL SIGNS: Blood pressure 184/74, pulse is 47, respiratory rate 14 and unlabored. The patient is 98% on room air. Height 5 feet 7 inches tall, weight 170.4 pounds, BMI calculated at 26.7. GENERAL: Well-developed, well-nourished, well-hydrated, 83-year-old male. Pain is rated around 6/10. HEENT: Normocephalic, atraumatic. Pupils equal, round, reactive to light. Extraocular muscles are intact. EXTREMITIES: Show no clubbing, no cyanosis, no edema. [facility] [address] [place] [address] PAIN MANAGEMENT CONSULTATION Name: SANJU GRANT Room #: REG [facility]#: [id number] Admission: 01/13/19 ������������������ Attend Phys: Fidencio Hess DO Discharge: ������������������ Date of : 33 Report #: [id number] MUSCULOSKELETAL: Well-healed surgical scars of the lumbar spine. There is severe restriction of motion of the lumbar region secondary to effusions. Seated straight leg raising negative. Supine straight leg raising negative. Amairani's test negative. ASSESSMENT: 1. Symptomatic lumbar radiculopathy. 2. Post-laminectomy syndrome. 3. Lumbosacral spondylosis with radicular symptoms. 4. Lumbar degeneration. 5. Complicated medication management utilizing scheduled medication. 6. Chronic intractable pain. We reviewed the fact that opiate medications are being used to provide analgesia adequate to support activities of daily living, not attempting to achieve a specific pain score on the 0-10 Visual Analog Scale. The current opiate medications are providing sufficient analgesia to allow the patient to participate in activities of daily living. The patient is not exhibiting any aberrant behavior suggestive of drug diversion. The patient is not having any adverse reactions to medications. The patient is not suffering from daytime somnolence or mental acuity changes. The patient is managing opiate-induced constipation with appropriate jtig-emj-nomvrna agents and dietary considerations. The patient was counseled on concern for caution with operating a motor vehicle while using opiate medications. A physical exam was performed and the patient's functional status was evaluated. All patients with back pain were advised against the bed rest greater than 4 days and were advised to return to normal activities. Pain score assessment was noted and the treatment plan was reviewed with the patient. All current medications, both prescribed and OTC were reviewed and reconciled on the electronic medical record. Tobacco screening was accomplished and smoking cessation was advised when indicated. BMI was noted and diet/exercise modification was recommended for all patients following outside normal parameters. I reviewed with the patient today their responsibilities to safeguard prescription medications, reviewed their responsibility to utilize medications only as prescribed by the physician. They are to seek and receive pain medications only from 1 physician group ( [facility]). They are to use 1 pharmacy and keep the clinic informed if they change pharmacies. Their responsibilities include making followup visits in a timely fashion and to avoid abrupt discontinuation of medication usage. Their responsibilities further include bringing their medications (bottles from the pharmacy with residual pills) to the visit for possible confirmation of pill counts and the patient understands it is their responsibility to submit to random drug screens to ensure both that the medications prescribed are present, and that no other [address] [address] PAIN MANAGEMENT CONSULTATION Name: SANJU GRANT Room #: REG [facility]#: [id number] Admission: 01/13/19 ������������������ Attend Phys: Fidencio Hess DO Discharge: ������������������ Date of : 33 Report #: [id number] controlled substances are present. All prescriptions provided today were generated electronically. PLAN: 1. The patient returns today in followup visit requesting to undergo a lumbar epidural injection under fluoroscopic guidance. The patient has been advised the risks and benefits of this procedure. These risks include but are not necessarily limited to bleeding, bruising, infection, worsening of pain, no relief of pain, also risk of temporary or permanent muscle weakness, temporary or permanent nerve damage, possible paralysis and . The patient states he understood and wished to proceed. 2. No medication changes made at today's visit. The patient will continue current medications provided for pain control. He was given refills of his Percocet today. 3. The patient was provided a prescription of Percocet 5/325 one tab p.o. q. 6 hours p.r.n. for pain. I have given the patient #120 tablets, releasing today, 4 weeks from today, 8 weeks from today, 3 months' worth of medication. 4. The patient will follow up with his prior pain physician on an as needed basis for treatment consideration PROCEDURE NOTE DESCRIPTION OF PROCEDURE: Lumbar epidural steroid injection under fluoroscopic guidance. After obtaining written consent, the patient was taken back to fluoroscopy suite, placed in prone position with pillow under abdomen to decrease lumbar lordosis. Skin overlying lumbosacral area was then prepped and draped in aseptic fashion. Lumbar intervertebral spaces were identified by AP fluoroscopy. Skin and subcutaneous tissue overlying target site of injection anesthetized with 3 mL of 1% lidocaine. A 20-gauge 3-1/2 inch Tuohy needle was advanced under fluoroscopic guidance towards the epidural space using paramedian approach. Epidural space identified using loss of resistance to air technique. After negative aspiration for heme or cerebrospinal fluid, 1 mL of Omnipaque injected. Lumbar epidurogram confirmed using both AP and lateral fluoroscopy. After negative aspiration for heme or cerebrospinal fluid, 5 mL of a solution containing 2 mL 40 mg per mL, 80 mg total triamcinolone and 3 mL lidocaine 1% injected slowly. Needle then retracted long-term, flushed with 1 mL of 1% lidocaine and then removed. Sterile bandage placed over injection site. No new motor deficits present in lower extremity following procedure. The patient tolerated the procedure well, carefully escorted to recovery room in [address] [address] PAIN MANAGEMENT CONSULTATION Name: SANJU GRANT [facility] Room #: REG [facility].#: [id number] Admission: 01/13/19 ������������������ Attend Phys: Fidencio Hess DO Discharge: ������������������ Date of : 33 Report #: [id number] stable condition. No apparent complication. After meeting discharge criteria, the patient discharged home. ��������������������������������������������� <ELECTRONICALLY SIGNED> ���������������������������������������� By: Fidencio Hess DO ��������������������������������������������� 01/21/19 1217 [id number] Fidencio Hess DO /nt
== END | disposition home or self-care (01) ==
LOC: PAIN 06:43
DX: M51.16 Intervertebral disc disorders with radiculopathy, lumbar region (principal); M47.27 Other spondylosis with radiculopathy, lumbosacral region; M96.1 Postlaminectomy syndrome, not elsewhere classified; G89.29 Other chronic pain; I10 Essential (primary) hypertension; M19.90 Unspecified osteoarthritis, unspecified site; Z79.891 Long term (current) use of opiate analgesic; Z79.899 Other long term (current) drug therapy; Z98.890 Other specified postprocedural states